=== PATIENT | male | born 1995 | race Caucasian/White ===

== ENCOUNTER 2018-09-28 11:25 | Emergency (ER) | payer SELFPAY ==
[~2018-09-28] VITALS: Ht 160 cm; Wt 65.8 kg
[2018-09-28] MEDS ORDERED: TAMIFLU 75MG CA75 MG PO (12:33)
== END 2018-09-28 12:38 | disposition home or self-care (01) ==
LOC: ED 11:25
DX: J10.1 Influenza due to other identified influenza virus with other respiratory manifestations (principal)